=== PATIENT | female | born 1960 | race Hispanic/Latino ===

== ENCOUNTER 2017-11-28 11:03 | Emergency (ER) | payer OTHER ==
[2017-11-28 11:08] VITALS: BP 148/88; PULSE 98; TEMP 97; O2SAT 97
[2017-11-28 11:11] VITALS: BMI 23.8
[2017-11-28 11:17] VITALS: RESP 16
[2017-11-28] MEDS ORDERED: Lidocaine/Epi 1% 1:100000 20 ML IJ ONE (11:31)
[2017-11-28] MEDS ORDERED: Lidocaine 2% w Epi 1:100,000 Inj IJ ONE (11:33)
--- NOTE | 2017-11-28 11:33 | ED PDOC ---
HPI: Head Injury Time Seen by Provider: 11/28/17 11:32 Chief Complaint (Nursing): Abnormal Skin Integrity Chief Complaint (Provider): head injury History Per: Patient (57 y/o female here with head injury that occurred last night 9pm when she tripped outdoors. Denies any LOC. States her Tetanus was updated in last 3 years. Denies any headache/difficulty with gait/weakness in upper/lower extremities. Denies any visual changes.) Past Medical History Reviewed: Historical Data, Nursing Documentation, Vital Signs Vital Signs: Last Vital Signs Temp 97 F L 11/28/17 11:14 Pulse 98 H 11/28/17 11:14 Resp 16 11/28/17 11:14 BP 148/88 11/28/17 11:14 Pulse Ox 97 11/28/17 11:14 - Medical History PMH: HTN - Family History Family History: States: Unknown Family Hx - Immunization History Hx Tetanus Toxoid Vaccination: Yes (within 10 yrs) - Home Medications Home Medications: Ambulatory Orders Medication Instructions Recorded Acetaminophen/Hydrocodone Bi 1 tab PO QID PRN #10 tab 11/23/15 [Hydrocodone-Acetaminophen 300 mg-5 mg] Erythromycin 0.5% [Erythromycin] 1 applic OD QID 7 Days tube 11/23/15 Cephalexin [Keflex] 500 mg PO QID #19 capsule 11/28/17 - Allergies Allergies/Adverse Reactions: Allergies Allergy/AdvReac Type Severity Reaction Status Date / Time No Known Allergies Allergy Verified 11/28/17 11:14 Review of Systems ROS Statement: Except As Marked, All Systems Reviewed And Found Negative Skin: Positive for: Other (facial laceration) Physical Exam - Reviewed Nursing Documentation Reviewed: Yes Vital Signs Reviewed: Yes - Physical Exam Appears: Positive for: Well, Non-toxic, No Acute Distress Head Exam: Positive for: NORMAL INSPECTION, NORMOCEPHALIC. Negative for: ATRAUMATIC (2.0 cm laceration below right eyebrow.) Skin: Positive for: Normal Color, Warm, DRY Eye Exam: Positive for: EOMI, Normal appearance, PERRL ENT: Positive for: Normal ENT Inspection Neck: Positive for: Normal, Painless ROM Cardiovascular/Chest: Positive for: Regular Rate, Rhythm Respiratory: Positive for: CNT, Normal Breath Sounds Gastrointestinal/Abdominal: Positive for: Normal Exam, Bowel Sounds, Soft Back: Positive for: Normal Inspection Extremity: Positive for: Normal ROM Neurologic/Psych: Positive for: Alert, Oriented - ECG O2 Sat by Pulse Oximetry: 97 - Progress ED Course And Treament: keflex 500mg x 1 dose Disposition - Clinical Impression Clinical Impression: Head injury, Facial laceration - Patient ED Disposition Is Patient to be Admitted: No - Disposition Disposition: Routine/Home Disposition Time: 12:15 Condition: FAIR Additional Instructions: RETURN TO ED IN 4-5 DAYS FOR REMOVAL OF SUTURES Prescriptions: Cephalexin [Keflex] 500 mg PO QID #19 capsule Instructions: Facial Laceration (ED), Head Injury (ED) Forms: [employer] ([place]) Procedure: Wound Repair - Time Performed Time Performed: 11:36 - Time Out Time Out: Site verified - Consent Obtained Consent obtained: Verbal - Performed by Performed by: Mid-level Provider - Indications Indication(s):: Laceration - Location Location:: Right Shape:: Linear Dimensions Length cm: 2.0cm Depth:: Epidermis - Anesthetic Technique Local/Regional Anesthetic:: Lidocaine 2% w/epi - Irrigated Irrigated with ml of normal saline: 250ml normal saline - Complexity Complexity:: Intermediate (2 layer) - Wound repair method Sutures:: # (ONE 6-0 VICRYL SUBCUTANEOUS/ FIVE 6-0 PROLENE EXTERNAL INTERRUPTED) , Size (6-0), Type (prolene), Technique (interrupted) - Muscle repiar layer closed with Muscle repair layer closed with:: Tetanus up to date - Patient tolerated procedure Patient Tolerated Procedure:: Well
== END 2017-11-28 12:24 | disposition home or self-care (01) ==
LOC: H.ER 11:03
DX: S01.81XA Laceration without foreign body of other part of head, initial encounter (principal); S09.90XA Unspecified injury of head, initial encounter; I10 Essential (primary) hypertension; W19.XXXA Unspecified fall, initial encounter